=== PATIENT | male | born 1955 | race Native Hawaiian/Other Pacific Islander ===

== ENCOUNTER 2021-05-10 01:27 | Emergency (ER) | payer OTHER ==
[~2021-05-10] VITALS: Ht 180.3 cm; Wt 81.6 kg
[2021-05-10 01:51] LABS: PLATELET COUNT 362 K/uL (142-355)
[2021-05-10 02:07] LABS: POTASSIUM 3.8 mmol/L (3.6-5.2)
[2021-05-10 02:50] VITALS: BP 111/65; TEMP 98
[2021-05-10] MEDS ORDERED: CEFT1INJ27 INJ (11:20)
[2021-05-10] MEDS ORDERED: MELATONIN5 M4 PO (11:21)
[2021-05-10] MEDS ORDERED: DOK100 MG PO (11:21)
[2021-05-10] MEDS ORDERED: OXYC5TAB24 PO (11:22)
[2021-05-10] MEDS ORDERED: MAPAP500 MG PO (11:23)
[2021-05-10] MEDS ORDERED: PROAIR HFA108 MCG/AC INH (11:24)
[2021-05-10] MEDS ORDERED: PREGABALIN75 MG PO (11:25)
[2021-05-10] MEDS ORDERED: XARELTO10 MG PO (11:28)
[2021-05-10] MEDS ORDERED: DALIRESP500 MC1 PO (11:30)
[2021-05-10] MEDS ORDERED: ROPINIROLE0.25 MG PO (11:31)
[2021-05-10] MEDS ORDERED: INSULIN LI100 UNIT/1 SC (11:32)
[2021-05-10] MEDS ORDERED: ALLO100T22 PO (11:33)
[2021-05-10] MEDS ORDERED: AMIT25TA22 PO (11:34)
[2021-05-10] MEDS ORDERED: BROVANA15 MCG/2 M INH (11:37)
[2021-05-10] MEDS ORDERED: ASPIR-8181 MG PO (11:37)
[2021-05-10] MEDS ORDERED: BUDESONIDE0.25 MG/2 INH (11:38)
[2021-05-10] MEDS ORDERED: CLON0.5T36 PO (11:39)
[2021-05-10] MEDS ORDERED: DILT30TA24 PO (11:40)
[2021-05-10] MEDS ORDERED: PANTOPRAZOLE SO40 M2 PO (11:40)
[2021-05-10] MEDS ORDERED: [UNRECOGNIZED DRUG - CODE] PO (11:42)
== END 2021-05-10 02:50 | disposition still patient (30) ==
LOC: ED 01:27
PROVIDERS: Hospitalist
DX: R45.851 Suicidal ideations (principal); F32.89 Other specified depressive episodes; R46.89 Other symptoms and signs involving appearance and behavior; Z11.52 Encounter for screening for COVID-19; Z04.6 Encounter for general psychiatric examination, requested by authority
CPT/HCPCS: 36415; 80053; 85008; 85027; 87635; 93005; 99283; U0003